=== PATIENT | male | born 1940 | race Caucasian/White ===

== ENCOUNTER 2016-10-13 08:44 | Observation (INO) | payer MEDICARE ==
[2016-10-13] MEDS ORDERED: Pepcid 20 MG VIAL IV ONE ×2 (08:56→09:07)
[2016-10-13] MEDS ORDERED: Sodium Chloride 0.9% 1000 ML 1,000 ML IV SCH (09:00)
[2016-10-13 09:08] LABS: BASOPHIL % 0.3 % (0.0-0.4); Eosinophil % 2.4 % (0.00-5.0); Granulocytes % 56.1 % (36.0-66.0); Lymphocytes % 33.9 % (24.0-44.0); Mean Cell Volume 91.2 fl (78-100); Mean Corpuscular Hemoglobin 29.5 pg (26-32); Mean Platelet Volume 10.6 fl (6-9.5); Monocytes % 7.3 % (0.0-12.0); Platelet Count 212 K/mm3 (150-450); Red Blood Count 5.79 M/mm3 (4.1-5.6); Red Cell Distribution Width 13.5 % (11.5-14.0); White Blood Count 7.1 K/mm3 (4.0-10.5)
[2016-10-13] MEDS ORDERED: Sodium Chloride 0.9% 1000 ML 1,000 ML ONE (09:08)
--- NOTE | 2016-10-13 09:15 | ERPHSYRPT ---
- History of Present Illness Time Seen by Provider: 10/13/16 08:47 Source: patient, family () Patient Subjective Stated Complaint: PT STATES HE HAS BEEN FEELING WEAK FOR THE PAST FEW DAYS. SOB WITH EXERTION. DENIES ANY COUGH. Triage Nursing Assessment: PT PALE, WARM, DRY. LUNG SOUNDS DIMINISHED. PT AFEBRILE. ARRIVED IN WHEELCHAIR, TRANSFRED TO er COT WITHOUT DIFFICULTY. Physician History: CC: weakness Hx: 75 y/o patient of Dr Kimball. He has felt general weakness for one week. Worse when upright and feels like might pass out. He has chronic black stools and takes iron. Hx of colon CA with recent normal colonoscopy. Prior renal insuff and AAA. Some abd pain. No vomiting. No chest pain. No fever or chills. He feels tired and fatigue. He is on eliquis for atrial fibrillation. Severity: moderate Associated Symptoms: shortness of breath Allergies/Adverse Reactions: No Known Drug Allergies Allergy (Verified 10/13/16 09:04) Home Medications: Fentanyl 25 mcg TOP Q72H 01/11/14 [History] Hydrocodone Bit/Acetaminophen [Clare 5-325 Tablet] 1 tab PO Q4-6HPRN PRN [History] Apixaban [Eliquis] 5 mg PO BID 01/03/15 [History] Ferrous Sulfate [Iron] 325 mg PO DAILY 01/03/15 [History] Furosemide 40 mg PO DAILY 01/03/15 [History] Amlodipine Besylate [Norvasc] 2.5 mg PO DAILY 10/13/16 [History] Metoprolol Tartrate 25 mg [Lopressor 25MG Tab] 25 mg PO DAILY 10/13/16 [ History] Omeprazole 20 MG [Prilosec 20 mg] 20 mg PO DAILY 10/13/16 [History] Rosuvastatin Calcium [Crestor] 10 mg PO HS 10/13/16 [History] Valsartan [Diovan] 80 mg PO DAILY 10/13/16 [History] Hx Tetanus, Diphtheria Vaccination/Date Given: Yes (UP TO DATE) Hx Influenza Vaccination/Date Given: Yes Hx Pneumococcal Vaccination/Date Given: Yes Immunizations Up to Date: Yes - Review of Systems Constitutional: Fatigue, Malaise, Weakness, No Fever, No Chills Eyes: No Symptoms Ears, Nose, & Throat: No Symptoms Respiratory: Dyspnea, No Cough Cardiac: No Chest Pain, No Syncope Abdominal/Gastrointestinal: Abdominal Pain, No Nausea, No Vomiting, No Diarrhea Genitourinary Symptoms: No Dysuria Musculoskeletal: No Back Pain Skin: No Rash Neurological: Dizziness, No Focal Weakness, No Headache, No Parasthesia All Other Systems: Reviewed and Negative - Past Medical History Pertinent Past Medical History: Yes Neurological History: No Pertinent History ENT History: No Pertinent History Cardiac History: Arrhythmia, High Cholesterol, Hypertension Respiratory History: No Pertinent History Endocrine Medical History: No Pertinent History Musculoskeletal History: Arthritis, Other GI Medical History: Gallbladder Disease, Other History: Renal Disease Psycho-Social History: No Pertinent History Male Reproductive Disorders: No Pertinent History Other Medical History: ANEMIA,FX NECK, hip replacement, fused rt hip, fused rt ankle - Past Surgical History Past Surgical History: Yes Neuro Surgical History: No Pertinent History Cardiac: No Pertinent History Respiratory: No Pertinent History Gastrointestinal: Cholecystectomy, Hernia Repair, Other Genitourinary: No Pertinent History Musculoskeletal: Orthopedic Surgery Male Surgical History: Vasectomy Other Surgical History: HIP AND NECK SURG, tamika drains left after gallbladder removed, draining milky substance. - Social History Smoking Status: Former smoker Exposure to second hand smoke: No Drug Use: none Patient Lives Alone: No ( here with ) - Nursing Vital Signs Nursing Vital Signs: Initial Vital Signs Temperature 99.2 F Temperature Source Rectal Pulse Rate 98 Respiratory Rate 18 Blood Pressure [] 118/74 Pain Intensity 0 - Physical Exam General Appearance: alert, other (pleasant man, mildly tachycardic when upright , pale) Eye Exam: PERRL/EOMI Ears, Nose, Throat Exam: moist mucous membranes Neck Exam: normal inspection, non-tender, supple Respiratory Exam: diminished breath sounds Cardiovascular Exam: irregular, No edema Gastrointestinal/Abdomen Exam: soft, tenderness (RLQ, no mass, several scars) Male Genitalia Exam: normal genitalia Back Exam: normal inspection, No vertebral tenderness Extremity Exam: normal inspection, normal range of motion Neurologic Exam: alert, oriented x 3, cooperative, geographic information systems analyst II-XII nml as tested, sensation nml, No motor deficits Skin Exam: warm, dry, pale, No rash - Course Nursing assessment & vital signs reviewed: Yes EKG Interpreted by Me: RATE (115), A-fib, NORMAL AXIS, NORMAL INTERVALS (QTc 469 ), Non-specific ST Changes, Other (LVH) - Radiology Exams cxr X-ray Interpretation: Teleradiologist Report, Negative - CT Exams abd/pelvis CT Interpretation: Tele-radiologist Report (renal cyst, stable AAA, no acute findings) Ordered Tests: Active Orders 24 hr Category Date Time Status Clean Catch Urine Specimen STAT Care 10/13/16 08:56 Active EKG-ER Only STAT Care 10/13/16 08:56 Active IV Insertion STAT Care 10/13/16 08:56 Active IV Insertion-2nd Peripheral STAT Care 10/13/16 09:07 Active NPO (ED) STAT Care 10/13/16 08:56 Active Rectal Temperature STAT Care 10/13/16 08:58 Active ABDOMEN AND PELVIS W/0 CONTRAS [CT] Stat Exams 10/13/16 08:57 Completed CHEST 1 VIEW (PORTABLE) Stat Exams 10/13/16 08:57 Completed BLOOD CULTURE Stat Lab 10/13/16 09:20 Received CBC W DIFF Stat Lab 10/13/16 08:56 Completed CMP Stat Lab 10/13/16 09:00 Completed CULTURE,URINE Stat Lab 10/13/16 10:50 Received LIPASE Stat Lab 10/13/16 09:00 Completed Lactic Acid Stat Lab 10/13/16 09:03 Completed Lactic Acid Stat Lab 10/13/16 11:20 Completed NT PRO BNP Stat Lab 10/13/16 09:00 Completed Occult Blood,Stool Other Stat Lab 10/13/16 08:59 Completed PROTIME WITH INR Stat Lab 10/13/16 09:00 Completed PTT Stat Lab 10/13/16 09:00 Completed TROPONIN Stat Lab 10/13/16 09:00 Completed UA W/ MICROSCOPIC Stat Lab 10/13/16 10:50 Completed Medication Summary Generic Name Dose Route Start Last Admin Trade Name Freq PRN Reason Stop Dose Admin Sodium Chloride 1,000 mls @ 100 mls/hr 10/13/16 09:00 10/13/16 09:11 Sodium Chloride 0.9% 1000 Ml IV 11/12/16 08:59 100 mls/hr .Q10H ROBERT Administration Discontinued Medications Generic Name Dose Route Start Last Admin Trade Name Freq PRN Reason Stop Dose Admin Famotidine 20 mg 10/13/16 08:56 10/13/16 09:11 Pepcid 20 Mg Vial IV 10/13/16 08:57 20 mg STAT ONE Administration Famotidine Confirm 10/13/16 09:07 Pepcid 20 Mg Vial Administered 10/13/16 09:08 Dose 20 mg IV .STK-MED ONE Ampicillin Sodium/Sulbactam Sodium 1.5 gm in 100 mls @ 200 mls/hr 10/13/16 11: 09 10/13/16 11:12 Unasyn 1.5gm / Nacl 100ml IV 10/13/16 11:38 200 mls/hr STAT STA Administration Ampicillin Sodium/Sulbactam Sodium Confirm 10/13/16 11:11 Unasyn 1.5gm / Nacl 100ml Administered 10/13/16 11:12 Dose 1.5 gm in 100 mls @ ud .ROUTE .STK-MED ONE Lab/Rad Data: Laboratory Result Diagrams 10/13/16 08:56 10/13/16 09:00 Laboratory Results 10/13/16 10/13/16 10/13/16 Range/Units 11:20 10:50 09:03 WBC (4.0-10.5) K/mm3 RBC (4.1-5.6) M/mm3 Hgb (12.5-18.0) gm/dl Hct (42-50) % MCV (78-100) fl MCH (26-32) pg MCHC (32-36) g/dl RDW (11.5-14.0) % Plt Count (150-450) K/mm3 MPV (6-9.5) fl Gran % (36.0-66.0) % Lymphocytes % (24.0-44.0) % Monocytes % (0.0-12.0) % Eosinophils % (0.00-5.0) % Basophils % (0.0-0.4) % Basophils # (0-0.4) INR (0.8-3.0) APTT (24.1-36.1) SECONDS Sodium (136-145) mEq/L Potassium (3.5-5.1) mEq/L Chloride (98-107) mEq/L Carbon Dioxide (21-32) mEq/L Anion Gap (5-15) MEQ/L BUN (9-20) mg/dL Creatinine (0.55-1.30) mg/dl Estimated GFR ML/MIN Glucose (70-110) MG/DL Lactic Acid 1.7 3.0 H (0.4-2.0) Calcium (8.5-10.1) mg/dL Total Bilirubin (0.2-1.0) mg/dL AST (15-37) U/L ALT (12-78) U/L Alkaline Phosphatase (46-116) U/L Troponin I (0.000-0.056) ng/ml NT-Pro-B Natriuret Pep (0-450) pg/ml Serum Total Protein (6.4-8.2) gm/dL Albumin (3.4-5.0) g/dL Lipase (73-393) U/L Ur Collection Type VOID Urine Color DARK YELLOW (YELLOW) Urine Appearance CLEAR (CLEAR) Urine pH 7.0 (5-6) Ur Specific Clint 1.010 (1.005-1.025) Urine Protein 2+ (Negative) Urine Ketones NEGATIVE (NEGATIVE) Urine Blood 5-10 (0-5) Waldemar/ul Urine Nitrite NEGATIVE (NEGATIVE) Urine Bilirubin MODERATE (NEGATIVE) Urine Urobilinogen 4 (0-1) mg/dL Ur Leukocyte Esterase 1+ (NEGATIVE) Urine Microscopic RBC 0-2 (0-2) /HPF Urine Microscopic WBC 10-15 (0-5) /HPF Ur Epithelial Cells FEW (FEW) /HPF Urine Bacteria FEW (NEGATIVE) /HPF Hyaline Casts 0-2 (0-2) /LPF Urine Mucus SLIGHT (NEGATIVE) /HPF Urine Glucose NEGATIVE (NEGATIVE) mg/dL Stool Occult Blood (Negative) Specimen Received 10/13/16 1050 ABO Group Rh Factor Antibody Screen (NEGATIVE) 10/13/16 10/13/16 10/13/16 Range/Units 09:00 09:00 09:00 WBC (4.0-10.5) K/mm3 RBC (4.1-5.6) M/mm3 Hgb (12.5-18.0) gm/dl Hct (42-50) % MCV (78-100) fl MCH (26-32) pg MCHC (32-36) g/dl RDW (11.5-14.0) % Plt Count (150-450) K/mm3 MPV (6-9.5) fl Gran % (36.0-66.0) % Lymphocytes % (24.0-44.0) % Monocytes % (0.0-12.0) % Eosinophils % (0.00-5.0) % Basophils % (0.0-0.4) % Basophils # (0-0.4) INR 1.33 (0.8-3.0) APTT 38.4 H (24.1-36.1) SECONDS Sodium 144 (136-145) mEq/L Potassium 4.5 (3.5-5.1) mEq/L Chloride 104 (98-107) mEq/L Carbon Dioxide 25.5 (21-32) mEq/L Anion Gap 18.9 H (5-15) MEQ/L BUN 23 H (9-20) mg/dL Creatinine 1.74 H (0.55-1.30) mg/dl Estimated GFR 41 ML/MIN Glucose 146 H (70-110) MG/DL Lactic Acid (0.4-2.0) Calcium 10.1 (8.5-10.1) mg/dL Total Bilirubin 0.80 (0.2-1.0) mg/dL AST 20 (15-37) U/L ALT 24 (12-78) U/L Alkaline Phosphatase 164 H (46-116) U/L Troponin I < 0.017 (0.000-0.056) ng/ml NT-Pro-B Natriuret Pep 4700 H (0-450) pg/ml Serum Total Protein 7.8 (6.4-8.2) gm/dL Albumin 4.0 (3.4-5.0) g/dL Lipase 118 (73-393) U/L Ur Collection Type Urine Color (YELLOW) Urine Appearance (CLEAR) Urine pH (5-6) Ur Specific Clint (1.005-1.025) Urine Protein (Negative) Urine Ketones (NEGATIVE) Urine Blood (0-5) Waldemar/ul Urine Nitrite (NEGATIVE) Urine Bilirubin (NEGATIVE) Urine Urobilinogen (0-1) mg/dL Ur Leukocyte Esterase (NEGATIVE) Urine Microscopic RBC (0-2) /HPF Urine Microscopic WBC (0-5) /HPF Ur Epithelial Cells (FEW) /HPF Urine Bacteria (NEGATIVE) /HPF Hyaline Casts (0-2) /LPF Urine Mucus (NEGATIVE) /HPF Urine Glucose (NEGATIVE) mg/dL Stool Occult Blood (Negative) Specimen Received ABO Group O Rh Factor POSITIVE Antibody Screen NEGATIVE (NEGATIVE) 10/13/16 10/13/16 Range/Units 08:59 08:56 WBC 7.1 (4.0-10.5) K/mm3 RBC 5.79 H (4.1-5.6) M/mm3 Hgb 17.1 (12.5-18.0) gm/dl Hct 52.8 H (42-50) % MCV 91.2 (78-100) fl MCH 29.5 (26-32) pg MCHC 32.4 (32-36) g/dl RDW 13.5 (11.5-14.0) % Plt Count 212 (150-450) K/mm3 MPV 10.6 H (6-9.5) fl Gran % 56.1 (36.0-66.0) % Lymphocytes % 33.9 (24.0-44.0) % Monocytes % 7.3 (0.0-12.0) % Eosinophils % 2.4 (0.00-5.0) % Basophils % 0.3 (0.0-0.4) % Basophils # 0.02 (0-0.4) INR (0.8-3.0) APTT (24.1-36.1) SECONDS Sodium (136-145) mEq/L Potassium (3.5-5.1) mEq/L Chloride (98-107) mEq/L Carbon Dioxide (21-32) mEq/L Anion Gap (5-15) MEQ/L BUN (9-20) mg/dL Creatinine (0.55-1.30) mg/dl Estimated GFR ML/MIN Glucose (70-110) MG/DL Lactic Acid (0.4-2.0) Calcium (8.5-10.1) mg/dL Total Bilirubin (0.2-1.0) mg/dL AST (15-37) U/L ALT (12-78) U/L Alkaline Phosphatase (46-116) U/L Troponin I (0.000-0.056) ng/ml NT-Pro-B Natriuret Pep (0-450) pg/ml Serum Total Protein (6.4-8.2) gm/dL Albumin (3.4-5.0) g/dL Lipase (73-393) U/L Ur Collection Type Urine Color (YELLOW) Urine Appearance (CLEAR) Urine pH (5-6) Ur Specific Clint (1.005-1.025) Urine Protein (Negative) Urine Ketones (NEGATIVE) Urine Blood (0-5) Waldemar/ul Urine Nitrite (NEGATIVE) Urine Bilirubin (NEGATIVE) Urine Urobilinogen (0-1) mg/dL Ur Leukocyte Esterase (NEGATIVE) Urine Microscopic RBC (0-2) /HPF Urine Microscopic WBC (0-5) /HPF Ur Epithelial Cells (FEW) /HPF Urine Bacteria (NEGATIVE) /HPF Hyaline Casts (0-2) /LPF Urine Mucus (NEGATIVE) /HPF Urine Glucose (NEGATIVE) mg/dL Stool Occult Blood NEGATIVE (Negative) Specimen Received ABO Group Rh Factor Antibody Screen (NEGATIVE) - Progress Progress Note: 10/13/16 11:57 Pt feels better. LActic improved. Called Dr Kimball. Will place in obs for abtx and IVF. Pt and agree. Discussed with .: Maura Will see patient in: hospital (observation) Counseled pt/family regarding: lab results, diagnosis, need for follow-up, rad results - Departure Time of Disposition: 11:57 Departure Disposition: Observation Clinical Impression: UTI (urinary tract infection), General weakness, Sepsis Condition: Fair Critical Care Time: No Referrals: FRANCISCO KIMBALL MD [Primary Care Provider] -
[2016-10-13 09:26] LABS: INR 1.33 (0.8-3.0); PROTIME 15.1 SECONDS (8.83-12.87)
[2016-10-13 09:29] LABS: PTT 38.4 SECONDS (24.1-36.1)
[2016-10-13 09:45] LABS: ALKALINE PHOSPHATASE 164 U/L (46-116); ANION GAP 18.9 MEQ/L (5-15); BLOOD UREA NITROGEN 23 mg/dL (9-20); CHLORIDE 104 mEq/L (98-107); Carbon Dioxide 25.5 mEq/L (21-32); Glucose 146 MG/DL (70-110); LIPASE 118 U/L (73-393); Potassium 4.5 mEq/L (3.5-5.1); SGOT/AST 20 U/L (15-37); SGPT/ALT 24 U/L (12-78); SODIUM 144 mEq/L (136-145); TROPONIN < 0.017 ng/ml (0.000-0.056); Total Protein 7.8 gm/dL (6.4-8.2)
--- NOTE | 2016-10-13 10:34 | XRAY ---
Indication: Weakness. Comparison: May 15, 2016. Portable chest unchanged again hyperinflated with scattered calcified granuloma and large hiatal hernia. Heart is not enlarged. Bony thorax intact again with osteopenia, degenerative changes, old left clavicle fracture, and left shoulder surgery. No new/acute findings. Impression: Stable nonacute chest with chronic features.
--- NOTE | 2016-10-13 10:37 | XRAY ---
Indication: Upper abdominal pain and weakness pain Multiple contiguous axial images obtained through the abdomen and pelvis without contrast as ordered. Comparison: January 02, 2015. Lung bases again demonstrates minimal bibasilar dependent atelectasis and left costophrenic angle calcified granuloma. There remains also large hiatal hernia with partial intrathoracic stomach. Heart is not enlarged. Noncontrasted stomach and bowel loops appear nonobstructed. There remains diffuse scattered colonic diverticulosis without diverticulitis. No free fluid/air. Interval enlarging left mid renal cortical cyst today 2.1 cm, previously 1.1 cm. Stable scattered hepatic/splenic calcified granulomas, subcentimeter right lobe hepatic cyst, benign chunky prostate calcifications, and cholecystectomy. Remaining liver, pancreas, spleen, adrenal glands, kidneys, ureters, and bladder appear unremarkable for noncontrast exam. There remains extensive aortoiliac calcifications and 4.4 cm distal AAA. Osseous structures again demonstrates right total hip arthroplasty, mild degenerative changes throughout the spine, bilateral L5 spondylolysis with minimal grade 1 spondylolisthesis, and mixed lytic/sclerotic appearing sacrum. Impression: 1. Interval enlarging 2.1 cm left renal cortical cyst. Ultrasound may yield further information if there remains further clinical concern. 2. Stable large hiatal hernia with partial intrathoracic stomach, diffuse colonic diverticulosis, hepatic cyst, AAA, and evidence for old granulomatous disease. 3. Stable L5 spondylolysis with minimal spondylolisthesis. 3. Stable mixed lytic/sclerotic appearing sacrum. Again metastasis not completely excluded in this patient with previous reported history of colorectal cancer. CT DI 22.27
[2016-10-13 11:06] LABS: ADD URINE CULTURE? YES (NO); Bilirubin MODERATE (NEGATIVE); COMPLETE URINE MICROSCOPIC? YES; Collection Type VOID; Glucose NEGATIVE (NEGATIVE); Leukocyte Esterase 1+ (NEGATIVE)
[2016-10-13] MEDS ORDERED: Unasyn 1.5GM / NaCl 100ML 1.5 GM/100 ML IVPB IV STA (11:09)
[2016-10-13] MEDS ORDERED: Unasyn 1.5GM / NaCl 100ML 1.5 GM/100 ML IVPB ONE (11:11)
[2016-10-13 11:12] LABS: Bacteria FEW /HPF (NEGATIVE); Epithelial Cells FEW /HPF (FEW); Hyaline Casts 0-2 /LPF (0-2); Mucus SLIGHT /HPF (NEGATIVE)
[2016-10-13] MEDS ORDERED: TYLENOL 325 MG PO PRN (12:12)
[2016-10-13] MEDS: Unasyn 1.5GM / NaCl 100ML 1.5 GM/100 ML IVPB IV SCH (17:19)
[2016-10-13] MEDS: Sodium Chloride 0.9% 1000 ML 1,000 ML IV SCH ×2 (17:19→19:54)
[2016-10-13] MEDS: ZOCOR 20MG PO SCH (22:04)
[2016-10-13] MEDS: ELIQUIS PO SCH (22:04)
[2016-10-13] MEDS: NORCO 5/325 MG PO PRN (22:05)
[2016-10-13] MEDS: Pepcid 20 MG VIAL IV SCH (22:07)
[2016-10-14] MEDS: Unasyn 1.5GM / NaCl 100ML 1.5 GM/100 ML IVPB IV SCH ×5 (00:09→23:19)
[2016-10-14 05:26] LABS: BASOPHIL % 0.4 % (0.0-0.4); Eosinophil % 4.2 % (0.00-5.0); Granulocytes % 58.3 % (36.0-66.0); Lymphocytes % 29.6 % (24.0-44.0); Mean Cell Volume 91.9 fl (78-100); Mean Platelet Volume 10.6 fl (6-9.5); Monocytes % 7.5 % (0.0-12.0); Platelet Count 169 K/mm3 (150-450); Red Blood Count 4.83 M/mm3 (4.1-5.6); Red Cell Distribution Width 13.1 % (11.5-14.0); White Blood Count 5.5 K/mm3 (4.0-10.5)
[2016-10-14 05:42] LABS: ALBUMIN 3.3 g/dL (3.4-5.0); ANION GAP 14.8 MEQ/L (5-15); BILIRUBIN,TOTAL 0.6 mg/dL (0.2-1.0); Carbon Dioxide 24.9 mEq/L (21-32); Potassium 4.2 mEq/L (3.5-5.1); Total Protein 6.2 gm/dL (6.4-8.2)
[2016-10-14] MEDS: Sodium Chloride 0.9% 1000 ML 1,000 ML IV SCH ×2 (06:55→17:43)
[2016-10-14] MEDS: DIOVAN 80 MG PO SCH (09:09)
[2016-10-14] MEDS: Lopressor 25MG Tab PO SCH (09:09)
[2016-10-14] MEDS: ELIQUIS PO SCH ×2 (09:09→21:35)
[2016-10-14] MEDS: NORVASC 5 MG PO SCH (09:09)
[2016-10-14] MEDS: FEOSOL 325 MG PO SCH (09:10)
[2016-10-14] MEDS: Protonix 40MG Tablet PO SCH (09:10)
[2016-10-14] MEDS: Lasix 40 MG PO SCH (09:10)
[2016-10-14] MEDS: Pepcid 20 MG VIAL IV SCH ×2 (09:16→21:35)
[2016-10-14] MEDS ORDERED: Duragesic 25MCG Patch TOP SCH (10:00)
[2016-10-14] MEDS ORDERED: NON-FORMULARY ITEM (Omeprazole 20 Mg [Prilosec 20 Mg] 20 MG) PO SCH (10:00)
[2016-10-14] MEDS ORDERED: NON-FORMULARY ITEM (Amlodipine Besylate [Norvasc] 2.5 MG) PO SCH (10:00)
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
[2016-10-14] MEDS: ZOCOR 20MG PO SCH (21:35)
[2016-10-14] MEDS: NORCO 5/325 MG PO PRN (21:37)
[2016-10-15] MEDS: Sodium Chloride 0.9% 1000 ML 1,000 ML IV SCH (05:41)
[2016-10-15] MEDS: Unasyn 1.5GM / NaCl 100ML 1.5 GM/100 ML IVPB IV SCH ×2 (05:42→11:39)
[2016-10-15] MEDS: ELIQUIS PO SCH (10:11)
[2016-10-15 10:12] LABS: Mean Cell Volume 90.6 fl (78-100); Mean Corpuscular Hemoglobin 29.9 pg (26-32); Mean Platelet Volume 10.5 fl (6-9.5); Platelet Count 157 K/mm3 (150-450); Red Blood Count 4.88 M/mm3 (4.1-5.6); Red Cell Distribution Width 12.9 % (11.5-14.0); White Blood Count 4.8 K/mm3 (4.0-10.5)
[2016-10-15] MEDS: Lasix 40 MG PO SCH (10:12)
[2016-10-15] MEDS: Lopressor 25MG Tab PO SCH (10:12)
[2016-10-15] MEDS: NORVASC 5 MG PO SCH (10:12)
[2016-10-15] MEDS: Protonix 40MG Tablet PO SCH (10:12)
[2016-10-15] MEDS: DIOVAN 80 MG PO SCH (10:12)
[2016-10-15] MEDS: NORCO 5/325 MG PO PRN (10:14)
[2016-10-15] MEDS: Pepcid 20 MG VIAL IV SCH (10:15)
[2016-10-15] MEDS: FEOSOL 325 MG PO SCH (10:16)
[2016-10-15 10:24] LABS: ALBUMIN 3.3 g/dL (3.4-5.0); ALKALINE PHOSPHATASE 133 U/L (46-116); ANION GAP 14.9 MEQ/L (5-15); BLOOD UREA NITROGEN 11 mg/dL (9-20); CHLORIDE 109 mEq/L (98-107); Carbon Dioxide 23.9 mEq/L (21-32); Glucose 105 MG/DL (70-110); Potassium 3.5 mEq/L (3.5-5.1); SGOT/AST 18 U/L (15-37); SGPT/ALT 16 U/L (12-78); SODIUM 144 mEq/L (136-145); Total Protein 6.2 gm/dL (6.4-8.2)
[2016-10-15 12:06] VITALS: BP 118/71; PULSE 68; O2SAT 95
--- NOTE | 2016-10-15 13:10 | PCM.DS ---
Discharge Summary Date of Admission: 10/13/16 12:11 Admitting Physician: FRANCISCO KIMBALL Primary Care Provider: FRANCISCO KIMBALL Allergies Allergies No Known Drug Allergies Allergy (Verified 10/13/16 12:30) Hospital Summary - Hospital Course Hospital Course: Chief Complaint Diagnosis Weakness for 2-3 days Allergies Allergy/AdvReac Type Severity Reaction Status Date / Time No Known Drug Allergies Allergy Verified 10/13/16 12:30 Vital Signs (Last 24 hours) Temp Pulse Resp BP Pulse Ox 10/15/16 12:00 98.3 F 68 18 118/71 95 10/15/16 08:00 20 10/15/16 07:06 98.1 F 80 20 182/78 96 10/15/16 04:00 18 10/15/16 03:59 97.9 F 75 18 111/69 94 L 10/15/16 00:00 18 10/14/16 23:50 97.8 F 69 18 159/80 94 L 10/14/16 20:00 19 10/14/16 19:46 98.2 F 72 19 137/86 93 L 10/14/16 16:00 98.3 F 78 18 139/77 92 L Home Medications Medication Instructions Recorded Confirmed Last Taken Type Amlodipine Besylate [Norvasc] 2.5 mg PO DAILY 10/13/16 10/13/16 10/13/16 History Metoprolol Tartrate 25 mg 25 mg PO DAILY 10/13/16 10/13/16 10/13/16 History [Lopressor 25MG Tab] Omeprazole 20 MG [Prilosec 20 mg] 20 mg PO DAILY 10/13/16 10/13/16 10/13/16 History Rosuvastatin Calcium [Crestor] 10 mg PO HS 10/13/16 10/13/16 10/12/16 History Valsartan [Diovan] 80 mg PO DAILY 10/13/16 10/13/16 10/13/16 History Current Medications Generic Name Dose Route Start Last Admin Trade Name Freq PRN Reason Stop Dose Admin Acetaminophen 650 mg 10/13/16 12:12 Tylenol 325 Mg PO 11/12/16 12:11 Q4H PRN PRN PAIN AND/OR FEVER Hydrocodone Bitart/Acetaminophen 1 tab 10/13/16 20:32 10/15/16 10:14 Calvin 5/325 Mg PO 10/18/16 20:31 1 tab Q4H PRN PRN Administration PAIN Amlodipine Besylate 2.5 mg 10/14/16 10:00 10/15/16 10:12 Norvasc 5 Mg PO 11/13/16 09:59 2.5 mg DAILY ROBERT Administration Apixaban 5 mg 10/13/16 22:00 10/15/16 10:11 Eliquis PO 11/12/16 21:59 5 mg BID ROBERT Administration Famotidine 20 mg 10/13/16 22:00 10/15/16 10:15 Pepcid 20 Mg Vial IV 11/12/16 21:59 20 mg Q12HT ROBERT Administration Fentanyl 25 mcg 10/14/16 10:00 10/14/16 09:10 Duragesic 25mcg Patch TOP 10/19/16 09:59 25 mcg Q3D ROBERT Administration Ferrous Sulfate 325 mg 10/14/16 10:00 10/15/16 10:16 Feosol 325 Mg PO 11/13/16 09:59 325 mg DAILY ROBERT Administration Furosemide 40 mg 10/14/16 10:00 10/15/16 10:12 Lasix 40 Mg PO 11/13/16 09:59 40 mg DAILY ROBERT Administration Ampicillin Sodium/Sulbactam Sodium 1.5 gm in 100 mls @ 200 mls/hr 10/13/16 18: 00 10/15/16 11:39 Unasyn 1.5gm / Nacl 100ml IV 11/12/16 17:59 200 mls/hr Q6HT ROBERT Administration Sodium Chloride 1,000 mls @ 100 mls/hr 10/13/16 12:12 10/15/16 05:41 Sodium Chloride 0.9% 1000 Ml IV 11/12/16 12:11 100 mls/hr .Q10H ROBERT Administration Metoprolol Tartrate 25 mg 10/14/16 10:00 10/15/16 10:12 Lopressor 25mg Tab PO 11/13/16 09:59 25 mg DAILY ROBERT Administration Pantoprazole Sodium 40 mg 10/14/16 10:00 10/15/16 10:12 Protonix 40mg Tablet PO 11/13/16 09:59 40 mg DAILY ROBERT Administration Simvastatin 20 mg 10/13/16 22:00 10/14/16 21:35 Zocor 20mg PO 11/12/16 21:59 20 mg HS ROBERT Administration Valsartan 80 mg 10/14/16 10:00 10/15/16 10:12 Diovan 80 Mg PO 11/13/16 09:59 80 mg DAILY ROBERT Administration Discontinued Medications Generic Name Dose Route Start Last Admin Trade Name Nathan FORRESTER Reason Stop Dose Admin Famotidine 20 mg 10/13/16 08:56 10/13/16 09:11 Pepcid 20 Mg Vial IV 10/13/16 08:57 20 mg STAT ONE Administration Famotidine Confirm 10/13/16 09:07 Pepcid 20 Mg Vial Administered 10/13/16 09:08 Dose 20 mg IV .STK-MED ONE Sodium Chloride 1,000 mls @ 100 mls/hr 10/13/16 09:00 10/13/16 09:11 Sodium Chloride 0.9% 1000 Ml IV 11/12/16 08:59 100 mls/hr .Q10H ROBERT Administration Ampicillin Sodium/Sulbactam Sodium 1.5 gm in 100 mls @ 200 mls/hr 10/13/16 11: 09 10/13/16 11:12 Unasyn 1.5gm / Nacl 100ml IV 10/13/16 11:38 200 mls/hr STAT STA Administration Ampicillin Sodium/Sulbactam Sodium Confirm 10/13/16 11:11 Unasyn 1.5gm / Nacl 100ml Administered 10/13/16 11:12 Dose 1.5 gm in 100 mls @ ud .ROUTE .STK-MED ONE Sodium Chloride Confirm 10/13/16 09:08 Sodium Chloride 0.9% 1000 Ml Administered 10/13/16 09:09 Dose 1,000 mls @ ud .ROUTE .STK-MED ONE Intake & Output (Last 24 hours) 10/13/16 10/14/16 10/15/16 10/16/16 11:59 11:59 11:59 11:59 Intake Total 8838 2546 240 Balance 2498 2546 240 Weight 104.326 kg 91.654 kg Microbiology Results (Last 24 hours) 10/13/16 10:50 Urine, Void - Final NO GROWTH Laboratory Results (Last 24 hours) 10/15/16 10/15/16 09:54 09:54 WBC 4.8 RBC 4.88 Hgb 14.6 Hct 44.2 MCV 90.6 MCH 29.9 MCHC 33.0 RDW 12.9 Plt Count 157 MPV 10.5 H Sodium 144 Potassium 3.5 Chloride 109 H Carbon Dioxide 23.9 Anion Gap 14.9 BUN 11 Creatinine 1.20 Estimated GFR > 60 Glucose 105 Calcium 8.7 Total Bilirubin 0.60 AST 18 ALT 16 Alkaline Phosphatase 133 H Serum Total Protein 6.2 L Albumin 3.3 L Orders (Last 24 hours) Category Date Time Status Regular Diet Diet 10/15/16 Breakfast Active CBC Urgent Lab 10/15/16 09:54 Completed CMP Urgent Lab 10/15/16 09:54 Completed - Vitals & Intake/Output Vital Signs: Vital Signs Temperature 98.3 F 10/15/16 12:00 Pulse Rate 68 10/15/16 12:00 Respiratory Rate 18 10/15/16 12:00 Blood Pressure 118/71 10/15/16 12:00 O2 Sat by Pulse Oximetry 95 10/15/16 12:00 Intake & Output: Intake & Output 10/13/16 10/14/16 10/15/16 10/16/16 11:59 11:59 11:59 11:59 Intake Total 2498 2546 240 Balance 2498 2546 240 Weight 91.654 kg - Lab Result Diagrams: 10/15/16 09:54 10/15/16 09:54 Lab Results-Last 24 Hrs: Lab Results-Last 24 Hours 10/15/16 10/15/16 Range/Units 09:54 09:54 WBC 4.8 (4.0-10.5) K/mm3 RBC 4.88 (4.1-5.6) M/mm3 Hgb 14.6 (12.5-18.0) gm/dl Hct 44.2 (42-50) % MCV 90.6 (78-100) fl MCH 29.9 (26-32) pg MCHC 33.0 (32-36) g/dl RDW 12.9 (11.5-14.0) % Plt Count 157 (150-450) K/mm3 MPV 10.5 H (6-9.5) fl Sodium 144 (136-145) mEq/L Potassium 3.5 (3.5-5.1) mEq/L Chloride 109 H (98-107) mEq/L Carbon Dioxide 23.9 (21-32) mEq/L Anion Gap 14.9 (5-15) MEQ/L BUN 11 (9-20) mg/dL Creatinine 1.20 (0.55-1.30) mg/dl Estimated GFR > 60 ML/MIN Glucose 105 (70-110) MG/DL Calcium 8.7 (8.5-10.1) mg/dL Total Bilirubin 0.60 (0.2-1.0) mg/dL AST 18 (15-37) U/L ALT 16 (12-78) U/L Alkaline Phosphatase 133 H (46-116) U/L Serum Total Protein 6.2 L (6.4-8.2) gm/dL Albumin 3.3 L (3.4-5.0) g/dL - Procedures and Test Procedures and Tests throughout Hospitalization: Therapy Orders & Screens 10/13/16 14:03 ST Screen per Nursing Assess Comment: Protocol Order Physician Instructions: Greater than [address] Admission Screening Reason For Exam: Triggered on Admission Diagnosis: UTI, Sepsis, Weakness CVA/Dyshpagia/Aphasia: No Cognitive Deficits: No Dehydration/Nutrition Deficit: Yes Reflux: Yes Oral-Motor Difficulties: No Pneumonia: No Prison Resident: No Total Points: 8 Discharge Exam General Appearance: no apparent distress, alert Neurologic Exam: alert, oriented x 3, cooperative, normal mood/affect, nml cerebellar function, sensation nml, No motor deficits Skin Exam: normal color, warm, dry Eye Exam: PERRL, EOMI, eyes nml inspection Ears, Nose, Throat Exam: normal ENT inspection, pharynx normal, moist mucous membranes Neck Exam: normal inspection, non-tender, supple, full range of motion Respiratory Exam: normal breath sounds, lungs clear, No respiratory distress Cardiovascular Exam: regular rate/rhythm, normal heart sounds Gastrointestinal/Abdomen Exam: soft, No tenderness, No mass Extremity Exam: normal inspection, normal range of motion Back Exam: normal inspection, normal range of motion, No CVA tenderness, No vertebral tenderness Male Genitalia Exam: deferred Rectal Exam: deferred Final Diagnosis/Problem List - Final Discharge Diagnosis/Problem (1) Abdominal pain Current Visit: Yes Status: Resolved (2) General weakness Current Visit: Yes Status: Resolved (3) UTI (urinary tract infection) Current Visit: Yes Status: Acute Assessment & Plan: will discharge home with cipro 500 mg po bid for 7 days (4) GERD (gastroesophageal reflux disease) Current Visit: Yes Status: Chronic Assessment & Plan: will continue omeprazole and pepcid 20 mg po bid - Discharge Discharge Date: 10/15/16 Disposition: Home, Self-Care Condition: Stable Prescriptions: New Ciprofloxacin [Cipro 500 MG] 500 mg PO BIDAC #15 tablet Famotidine 20 mg [Pepcid 20 MG] 20 mg PO BID #60 tablet Continue Hydrocodone Bit/Acetaminophen [Calvin 5-325 Tablet] 1 tab PO Q4-6HPRN PRN PRN Reason: Pain Fentanyl 25 mcg TOP Q72H Ferrous Sulfate [Iron] 325 mg PO DAILY Furosemide 40 mg PO DAILY Apixaban [Eliquis] 5 mg PO BID Rosuvastatin Calcium [Crestor] 10 mg PO HS Omeprazole 20 MG [Prilosec 20 mg] 20 mg PO DAILY Metoprolol Tartrate 25 mg [Lopressor 25MG Tab] 25 mg PO DAILY Amlodipine Besylate [Norvasc] 2.5 mg PO DAILY Valsartan [Diovan] 80 mg PO DAILY Follow up with: FRANCISCO KIMBALL MD [Primary Care Provider] - Forms: Patient Portal Information
== END 2016-10-15 13:55 | disposition home or self-care (01) ==
LOC: ED 08:44 → MED SURG 12:11
PROVIDERS: ADMIT General Practice; ATTEND General Practice
DX: R10.9 Unspecified abdominal pain (principal); R53.1 Weakness; N30.00 Acute cystitis without hematuria; K21.9 Gastro-esophageal reflux disease without esophagitis; I10 Essential (primary) hypertension; Z85.038 Personal history of other malignant neoplasm of large intestine; I48.91 Unspecified atrial fibrillation; N28.9 Disorder of kidney and ureter, unspecified; M19.90 Unspecified osteoarthritis, unspecified site; Z79.01 Long term (current) use of anticoagulants; Z79.899 Other long term (current) drug therapy
CPT/HCPCS: 36000; 36415; 71010; 74176; 80053; 81000; 82272; 83605; 83690; 83880; 84484; 85025; 85027; 85610; 85730; 86850; 86900; 86901; 87040; 87086; 93005; 93268; 96360; 96365; 96374; 99285; G0378; J0295; A9270-GY

== ENCOUNTER 2017-08-09 10:42 | Emergency (ER) | payer MEDICARE ==
[2017-08-09] MEDS ORDERED: Zofran 4 MG/2 ML VIAL IV ONE (11:16)
[2017-08-09] MEDS ORDERED: Sodium Chloride 0.9% 1000 ML 1,000 ML IV STA (11:16)
[2017-08-09] MEDS ORDERED: PROTONIX 40 MG IV IV ONE ×2 (11:16→11:21)
[2017-08-09] MEDS ORDERED: Zofran 4 MG/2 ML VIAL ONE (11:21)
[2017-08-09] MEDS ORDERED: Sodium Chloride 0.9% 1000 ML 1,000 ML ONE ×3 (11:22→14:19)
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
[2017-08-09 11:31] LABS: BASOPHIL % 0.1 % (0.0-0.4); Basophil (Absolute #) 0.01 (0-0.4); Eosinophil % 0.4 % (0.00-5.0); Eosinophil (Absolute #) 0.03 (0-0.5); Granulocyte Absolute (ANC) 5.49 (1.4-6.9); Granulocytes % 73.4 % (36.0-66.0); Hematocrit 31.6 % (42-50); Hemoglobin 8.9 gm/dl (12.5-18.0); Lymphocyte (Absolute #) 1.21 (1.0-4.6); Lymphocytes % 16.2 % (24.0-44.0); Mean Cell Volume 93.5 fl (78-100); Mean Corpuscular Hemoglobin 26.3 pg (26-32); Mean Corpuscular Hgb Concent. 28.2 g/dl (32-36); Monocyte (Absolute #) 0.74 (0.0-1.3); Monocytes % 9.9 % (0.0-12.0); Platelet Count 504 K/mm3 (150-450); Red Blood Count 3.38 M/mm3 (4.1-5.6); Red Cell Distribution Width 18.5 % (11.5-14.0); White Blood Count 7.5 K/mm3 (4.0-10.5)
[2017-08-09 11:34] LABS: Lactic Acid 1.9 (0.4-2.0)
[2017-08-09 11:42] LABS: ALKALINE PHOSPHATASE 142 U/L (38-126); BLOOD UREA NITROGEN 21 mg/dL (9-20); CHLORIDE 104 mmol/L (98-107); Calcium 8.7 mg/dL (8.4-10.2); Carbon Dioxide 30 mmol/L (22-30); Creatinine 1 0.91 mg/dL (0.66-1.25); Glucose 126 mg/dL (74-106); SGOT/AST 18 U/L (17-59); SGPT/ALT 13 U/L (0-50); SODIUM 143 mmol/L (137-145); Total Protein 7.4 g/dL (6.3-8.2)
[2017-08-09] MEDS ORDERED: FENTANYL 500 MCG/10 ML VIAL IV ONE (12:22)
[2017-08-09] MEDS ORDERED: Phenergan 25 MG INJ IM ONE (12:22)
[2017-08-09 12:23] LABS: Appearance CLEAR (CLEAR); Bilirubin NEGATIVE (NEGATIVE); Blood NEGATIVE Ery/ul (0-5); Glucose NEGATIVE (NEGATIVE); Ketones NEGATIVE (NEGATIVE); Leukocyte Esterase TRACE (NEGATIVE); Nitrite NEGATIVE (NEGATIVE); Protein,Urine Dip 100 (Negative); Urobilinogen NORMAL mg/dL (0-1)
[2017-08-09] MEDS ORDERED: Phenergan 25 MG INJ ONE (12:25)
[2017-08-09] MEDS ORDERED: SUBLIMAZE 100 MCG/2 ML ONE (12:26)
[2017-08-09 12:28] LABS: Bacteria FEW /HPF (NEGATIVE); Epithelial Cells FEW /HPF (FEW); Mucus SLIGHT /HPF (NEGATIVE); RBC 0-2 /HPF (0-2); WBC 0-2 /HPF (0-5)
[2017-08-09] MEDS ORDERED: Sodium Chloride 0.9% 1000 ML 1,000 ML IV SCH (12:30)
[2017-08-09 12:45] LABS: INR 1.27 (0.8-3.0)
[2017-08-09 12:48] LABS: PTT 37.2 SECONDS (24.1-36.1)
[2017-08-09 13:28] LABS: Hematocrit 29.4 % (42-50); Hemoglobin 8.3 gm/dl (12.5-18.0)
[2017-08-09 13:51] LABS: Slide Review 1 YES
[2017-08-09] MEDS ORDERED: Vancomycin 1GM/ Ns 250ML*** 1 GM/250 ML IVPB IV ONE (13:55)
[2017-08-09] MEDS ORDERED: Zosyn 3.375GM/100 Ml D5W 3.375 GM/100 ML IVPB IV STA (13:55)
[2017-08-09] MEDS ORDERED: Zosyn 3.375GM/100 Ml D5W 3.375 GM/100 ML IVPB IV ONE (13:59)
[2017-08-09 14:09] LABS: ABO TYPING O; Antibody Screen NEGATIVE (NEGATIVE); RH TYPING POSITIVE
[2017-08-09] MEDS ORDERED: Vancomycin 1GM/ Ns 250ML*** 250 ML IV ONE (15:16)
[2017-08-09 15:58] VITALS: BP 129/82; PULSE 139; O2SAT 95
[2017-08-09] MEDS ORDERED: Lasix 40 MG/4 ML ONE (16:08)
--- NOTE | 2017-08-09 20:38 | XRAY ---
Indication: Vomiting blood. Recent hiatal hernia surgery 2 weeks ago. Multiple contiguous axial images obtained through the abdomen and pelvis using 80 cc Isovue 370 contrast only. Comparison: October 13, 2016. Lung bases demonstrates moderate bibasilar effusions and atelectasis. Left effusion demonstrates several tiny air bubbles concerning for infection. Heart is not enlarged. New gastroesophageal junction large caliber stent. New PEG tube with balloon tip in the gastric lumen. Noncontrasted stomach and bowel loops appear nonobstructed. Again scattered colonic diverticulosis, greatest in the sigmoid colon. Right hip prosthesis again produces extreme beam artifact limiting these levels. Stable left renal cyst, hepatic/splenic calcified granulomas, benign chunky prostate calcifications, and cholecystectomy. No free fluid/air. Remaining liver, pancreas, spleen, adrenal glands, kidneys, ureters, and bladder appear unremarkable. 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 Impression: 1. New moderate bibasilar pleural effusions/atelectasis. Left base effusion demonstrates several air bubbles concerning for infection. 2. New gastroesophageal junction large caliber stent and PEG tube. 3. Minimally enlarging distal AAA. 4. Stable colonic diverticulosis, left renal cyst, evidence for old granulomatous disease, L5 spondylolysis with minimal spondylolisthesis, and mixed lytic/sclerotic appearance sacrum. Comment: Preliminary interpretation was made by [facility]. No critical discrepancy. CTDI 23.12
--- NOTE | 2017-08-09 20:40 | XRAY ---
Indication: Vomiting. Comparison: October 13, 2016. Portable chest demonstrates new mild/moderate bibasilar infiltrates/atelectasis/effusions, left greater than right. Upper lungs clear. Heart is not enlarged for AP portable projection. New GE junction large caliber stent. Bony thorax intact again with osteopenia and degenerative changes. Impression: 1. New bibasilar infiltrates/atelectasis/effusion. Correlate clinically. 2. New GE junction large caliber stent.
[2017-08-10] MEDS ORDERED: Lasix 20 MG/2 ML IV ONE (16:08)
== END 2017-08-09 16:32 | disposition short-term general hospital (02) ==
LOC: ED 10:42
DX: K92.2 Gastrointestinal hemorrhage, unspecified (principal); J86.9 Pyothorax without fistula; Z98.890 Other specified postprocedural states; Z79.899 Other long term (current) drug therapy
CPT/HCPCS: 36000; 36415; 71045; 74177; 80053; 81000; 83605; 85014; 85018; 85025; 85610; 85730; 86850; 86900; 86901; 86922; 87040; 93041; 96360; 96361; 96365; 96366; 99285; 99291; P9016; 36430; J1940; J2405; J2543; J2550; J3010; J3370

== ENCOUNTER 2024-08-08 10:48 | Emergency (ER) | payer MEDICARE ==
[2024-08-08 11:09] VITALS: TEMP 97.4
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
[2024-08-08 11:41] LABS: Appearance Clear (Clear); Bacteria None Seen /HPF (None Seen); Bilirubin Negative (Negative); Blood Negative (Negative); Epithelial Cells None Seen /HPF (None Seen); Glucose, Urine >=1000 mg/dL (Negative); Hyaline Casts NONE SEEN /LPF (0-2); Ketones Negative (Negative); Leukocyte Esterase Trace (Negative); Nitrite Negative (Negative); Protein,Urine Dip Negative (Negative); RBC 0-2 /HPF (0-5); Specific Gravity 1.015 (1.005-1.030); Urobilinogen 0.2 mg/dL (0.2)
[2024-08-08 11:55] LABS: Absolute Neutrophil Ct (ANC) 7.85 x10^3/uL (1.78-5.38); BASOPHIL % 0.3 % (0.2-1.2); Basophil (Absolute #) 0.03 x10^3/uL (0.01-0.08); Eosinophil % 0.2 % (0.8-7.0); Eosinophil (Absolute #) 0.02 x10^3/uL (0.04-0.54); Hematocrit 48.6 % (40.1-51.0); Hemoglobin 14.9 g/dL (13.7-17.5); IMMATURE GRAN % 1.1 % (0.001-0.429); Lymphocyte (Absolute #) 0.78 x10^3/uL (1.32-3.57); Lymphocytes % 8.4 % (21.8-53.1); Mean Cell Volume 93.6 fL (79.0-92.2); Mean Corpuscular Hemoglobin 28.7 pg (25.7-32.2); Mean Corpuscular Hgb Concent. 30.7 g/dL (32.3-36.5); Mean Platelet Volume 10.1 fL (9.4-12.4); Monocyte (Absolute #) 0.53 x10^3/uL (0.30-0.82); Monocytes % 5.7 % (5.3-12.2); Neutrophil % 84.3 % (34.0-67.9); Platelet Count 190 x10^3/uL (163-337); Red Blood Count 5.19 x10^6/uL (4.63-6.08); White Blood Count 9.3 x10^3/uL (4.23-9.07)
[2024-08-08 12:10] LABS: ALBUMIN 3.6 g/dL (3.5-5.0); BILIRUBIN,TOTAL 0.5 mg/dL (0.2-1.3); Calcium 8.7 mg/dL (8.4-10.2); Creatinine 1 1.16 mg/dL (0.66-1.25); EST GLOMERULAR FILTRATION RATE 62.1 ML/MIN; Potassium 4.1 mmol/L (3.5-5.1); Total Protein 6.2 g/dL (6.3-8.2)
[2024-08-08] MEDS: Sodium Chloride 0.9% 1000 ML 1,000 ML IV STA (14:20)
[2024-08-08] MEDS ORDERED: Sodium Chloride 0.9% 1000 ML 1,000 ML ONE (14:20)
--- NOTE | 2024-08-08 14:30 | XRAY ---
Indication: Abdominal pain 3 weeks. Multiple contiguous axial images obtained through the abdomen and pelvis using 80 cc Isovue 370 contrast. Comparison: October 28, 2023 Lung bases again demonstrates minimal bibasilar dependent atelectasis and small left lower lobe calcified granuloma. No infiltrate or effusion. Heart remains enlarged. Stable small hiatal hernia. Noncontrasted stomach and bowel loops appear nonobstructed. There are mild fluid distended small bowel loops with fluid leveling, ileus versus enteritis. Again diffuse colonic diverticulosis without diverticulitis, hepatic/splenic calcified granulomas, tiny hepatic cyst, bilateral renal cysts, benign prostate calcifications, and cholecystectomy clips. No free fluid/air. Remaining liver, pancreas, spleen, adrenal glands, kidneys, ureters, and bladder are unremarkable. Again extensive scattered arteriosclerotic disease. Stable infrarenal AAA with patent aortobiiliac stents. Osseous structures intact again with osteopenia, multilevel degenerative spondylosis, bilateral L5 spondylolysis with grade 1 listhesis, mixed lytic/sclerotic appearing sacrum, and right total hip arthroplasty. Impression: 1. Mild fluid distended small bowel bowel loops with fluid leveling, ileus versus enteritis. 2. Again extensive arteriosclerotic disease with grossly stable AAA and patent aortobiiliac stents. 3. Chronic findings including cardiomegaly, hiatal hernia, colonic diverticulosis, hepatic cyst, bilateral renal cysts, prostate calcifications, chronic bony findings, and old granulomatous disease.
[2024-08-08 15:41] VITALS: RESP 20
[2024-08-08 15:49] VITALS: BP 126/62; PULSE 75; O2SAT 99
== END 2024-08-08 15:51 | disposition home or self-care (01) ==
LOC: ED 10:48
DX: R19.7 Diarrhea, unspecified (principal); R10.30 Lower abdominal pain, unspecified; E78.5 Hyperlipidemia, unspecified; I10 Essential (primary) hypertension; Z79.01 Long term (current) use of anticoagulants; Z79.899 Other long term (current) drug therapy
CPT/HCPCS: 36415; 74177; 80053; 81001; 83605; 83690; 85025; 96360; 99284; 99285